=== PATIENT | female | born 1995 | race Hispanic/Latino ===

== ENCOUNTER → 2021-07-31 | Outpatient (CLI) | payer OTHER | END | disposition home or self-care (01) | LOC: RAH 13:48 | PROVIDERS: ATTEND Family Medicine | DX: N63.20 Unspecified lump in the left breast, unspecified quadrant (principal) | CPT/HCPCS: 76641 ==

== ENCOUNTER → 2021-09-26 | Outpatient (CLI) | payer OTHER | END | disposition home or self-care (01) | LOC: RAH 14:13 | PROVIDERS: ATTEND Family Medicine | DX: N63.20 Unspecified lump in the left breast, unspecified quadrant (principal) | CPT/HCPCS: 76641 ==

== ENCOUNTER 2021-10-02 14:22 | Emergency (ER) | payer OTHER ==
[~2021-10-02] VITALS: Ht 154.9 cm; Wt 79.4 kg
[2021-10-02] MEDS ORDERED: CLIN-141 PO (15:43)
[2021-10-02] MEDS ORDERED: NAPR500T6 PO (15:43)
[2021-10-02] MEDS ORDERED: IBUPROFEN 600 MG TABLET PO ONE (16:00)
[2021-10-02] MEDS ORDERED: CLINDAMYCIN 150 MG CAP PO ONE (16:00)
[2021-10-02 16:41] VITALS: BP 110/80
== END 2021-10-02 16:46 | disposition home or self-care (01) ==
LOC: EDH 14:22
DX: N64.4 Mastodynia (principal); F41.9 Anxiety disorder, unspecified; I10 Essential (primary) hypertension